=== PATIENT | male | born 2005 | race Two or more races ===

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

== ENCOUNTER 2025-02-04 01:19 | Emergency (ER) | payer MEDICAID ==
[~2025-02-04] VITALS: Ht 175.3 cm; Wt 59.3 kg
[2025-02-04 01:32] VITALS: O2SAT 99
[2025-02-04 04:12] LABS: BASOPHILS % 0.5 % (0.0-2.0); EOSINOPHILS % 0.2 % (0.0-5.0); HEMATOCRIT. 42.1 % (42.0-52.0); HEMOGLOBIN. 14.6 g/dL (14.0-18.0); LYMPHOCYTES % 17.8 % (20.0-50.0); MEAN PLATELET VOLUME 7.7 fl (7.4-10.4); MONOCYTES % 9.0 % (2.0-8.0); NEUTROPHILS % 72.5 % (40.0-76.0); PLATELET 233 x1000/uL (130-400); RED BLOOD CELL COUNT 4.96 mill/uL (4.7-6.1); RED CELL DISTRIBUTION WIDTH 13.0 % (11.6-14.6)
[2025-02-04 05:46] LABS: CREATININE 0.9 mg/dL (0.6-1.3)
[2025-02-04 05:47] LABS: UREA NITROGEN BLOOD 12 mg/dL (9-23)
[2025-02-04 05:48] LABS: ASPARTATE AMINOTRANSFERASE 16 IU/L (<34)
[2025-02-04 05:49] LABS: BILIRUBIN DIRECT 0.2 mg/dL (<=3.0); BILIRUBIN TOTAL 0.7 mg/dL (0.1-1.0); PROTEIN TOTAL 8.0 g/dL (6.0-8.3)
[2025-02-04] MEDS: KETOROLAC 15MG/ML VIAL IM ONE (05:53)
[2025-02-04] MEDS: LORAZEPAM 0.5MG TABLET PO ONE (05:53)
[2025-02-04] MEDS: IOHEXOL-300 100 ML BOTTLE ONE (06:31)
[2025-02-04 08:20] LABS: CLARITY URINE CLEAR (CLEAR); COLOR URINE YELLOW (YELLOW); GLUCOSE URINE NEGATIVE (NEGATIVE); KETONES URINE NEGATIVE (NEGATIVE); LEUKOCYTE ESTERASE URINE NEGATIVE (NEGATIVE); NITRITE URINE NEGATIVE (NEGATIVE); OCCULT BLOOD URINE NEGATIVE (NEGATIVE); PH URINE 7.0 (4.5-8.0); PROTEIN URINE NEGATIVE (NEGATIVE); SPECIFIC GRAVITY URINE 1.051 (1.005-1.030); UROBILINOGEN URINE 1.0 E.U./dL (0.2-1.0)
[2025-02-04 09:20] VITALS: BP 130/85; PULSE 81; RESP 12; TEMP 37.4; O2SAT 98
== END 2025-02-04 09:34 | disposition short-term general hospital (02) ==
LOC: ER 01:19 → CANBEDREQ 07:42 → ER 09:34
DX: N43.3 Hydrocele, unspecified (principal)
CPT/HCPCS: 99285; 74177; 93976; 80076; 80048; 81003; 83690; 85025; 36415; 76870; Q9967